=== PATIENT | female | born 2000 | race Caucasian/White ===

== ENCOUNTER 2025-04-09 20:22 | Emergency (ER) | payer SELFPAY ==
[2025-04-09] MEDS ORDERED: Sodium Chloride 0.9% 10 ML Syringe FLUSH PRN (20:38)
[2025-04-09] MEDS ORDERED: Sodium Chloride 0.9% 2.5 ML Syringe FLUSH PRN (20:38)
[2025-04-09] MEDS: Ondansetron 4 MG/2 ML SDV IVPUSH ONE (21:12)
[2025-04-09 21:13] LABS: APPEARANCE,URINE CLEAR; GLUCOSE,URINE NEGATIVE (NEGATIVE); OCCULT BLOOD,URINE NEGATIVE (NEGATIVE)
[2025-04-09 21:23] LABS: EPITHELIAL CELLS,URINE OCCASIONAL (NONE-FEW)
[2025-04-09 22:22] LABS: CANDIDA DNA PROBE NEGATIVE (NEGATIVE); GARDNERELLA DNA PROBE POSITIVE (NEGATIVE); TRICHOMONAS DNA PROBE POSITIVE (NEGATIVE)
[2025-04-09 22:48] LABS: C. TRACHOMATIS BY PCR NOT DETECTED; N. GONORRHOEAE BY PCR NOT DETECTED
== END 2025-04-09 22:18 | disposition home or self-care (01) ==
LOC: MW.ED 20:22
DX: N76.0 Acute vaginitis (principal); A59.9 Trichomoniasis, unspecified
CPT/HCPCS: 81001; 81025; 87480; 87491; 87510; 87591; 87660; 99284; A9270; 99283